=== PATIENT | female | born 2000 | race African-American/Black ===

== ENCOUNTER 2020-08-23 00:37 | Emergency (ER) | payer OTHER, BC, SELFPAY ==
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
[2020-08-23 00:38] VITALS: BP 137/78; PULSE 109; RESP 18; TEMP 36.9; O2SAT 100
--- NOTE | 2020-08-23 01:06 | ECG_ITS ---
Measurements Intervals Roy Rate: 108 P: 52 MS: 142 QRS: 50 QRSD: 85 T: 23 QT: 313 QTc: 420 Interpretive Statements SINUS TACHYCARDIA MINIMAL Q WAVES- INFERIOR LEADS ABNORMAL ECG Electronically Signed On 08-23-2020 8:25:58 CDT by Gio Bob D.O.
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
[2020-08-23] MEDS: KETOROLAC 30 MG/ML VIAL (*BKC) IV PUSH (01:36)
[2020-08-23 01:56] LABS: Basophils Percent Auto 0.3 % (0.2-1.2); Eosinophils Percent Auto 0.1 % (0-4.4); Hematocrit 42.2 % (37.0-47.0); Hemoglobin 13.8 g/dL (12.0-15.0); Immature Granulocyte Absolute 0.05 K/mm3 (0.00-0.031); Immature Granulocyte Percent A 0.3 % (0-0.5); Lymphocytes Absolute Auto 1.28 K/mm3 (0.9-3.2); Lymphocytes Percent Auto 8.5 % (18.3-44.2); Mean Corpuscular HGB Conc 32.7 g/dl (32-36); Mean Corpuscular Hemoglobin 27.3 pg (26-34); Mean Corpuscular Volume 83.6 fl (80-100); Mean Platelet Volume 9.9 fl (7.4-10.4); Monocytes Absolute Auto 0.6 K/mm3 (0.1-0.6); Neutrophils Percent Auto 86.8 % (45.5-73.1); Platelet Count Result 304 k/mm3 (150-375); Red Blood Count 5.05 M/mm3 (4.2-5.4); Red Cell Distribution Width 13.8 % (11.5-14.5)
[2020-08-23 02:01] VITALS: BP 109/79; PULSE 96; RESP 16; O2SAT 99
[2020-08-23 02:08] LABS: Alanine Aminotransferase 34 U/L (4-35); Albumin Level 4.3 g/dL (3.5-5.1); Alkaline Phosphatase 107 U/L (38-126); Anion Gap 11 mmol/L (8-16); Aspartate Amino Transferase 33 U/L (14-36); Bilirubin,Total 0.5 mg/dL (0.2-1.3); Blood Urea Nitrogen 13 mg/dL (7-17); Calcium 9.7 mg/dL (8.4-10.2); Carbon Dioxide 24 mmol/L (22-30); Chloride 107 mmol/L (98-107); Estimated Glomerular Filt Rate > 60; Glucose 176 mg/dL (65-105); Sodium 142 mmol/L (137-145)
[2020-08-23 03:31] VITALS: BP 124/80; PULSE 95; RESP 16; O2SAT 99
== END 2020-08-23 03:34 | disposition home or self-care (01) ==
PROVIDERS: Emergency Provider General Practice
DX: S70.02XA Contusion of left hip, initial encounter (principal); S40.012A Contusion of left shoulder, initial encounter; S93.402A Sprain of unspecified ligament of left ankle, initial encounter; R00.0 Tachycardia, unspecified; R94.31 Abnormal electrocardiogram [ECG] [EKG]; V43.52XA Car driver injured in collision with other type car in traffic accident, initial encounter
CPT/HCPCS: 36415; 71260; 73030; 73610; 74177; 80053; 81025; 85025; 93005; 96374; 99284; J1885; Q9967